=== PATIENT | male | born 1970 | race Caucasian/White ===

== ENCOUNTER 2020-07-05 17:10 | Outpatient (CLI) | payer OTHER ==
[2020-07-05 16:03] LABS: PTT 26.5 sec (22.0-33.0); Prothrombin Time 11.4 sec (9.5-12.1)
[2020-07-05 16:05] LABS: Hemoglobin 15.4 g/dL (13.5-17.5); Mean Corpuscular HGB CONC 33.8 g/dL (32.0-36.0); Mean Corpuscular Hemoglobin 30.6 pg (27.0-33.0); Mean Corpuscular Volume 90.3 fl (81.2-95.1); Platelet Count 145 10x3/uL (150-450); RBC Distribution Width 12.6 % (11.5-14.5); Red Blood Cell (RBC) Count 5.04 10x6/uL (4.32-5.72); White Blood Cell (WBC) Count 8.3 10x3/uL (3.5-10.5)
[2020-07-05 17:12] LABS: Anion Gap 14 mmol/L (10-20); BUN (Urea Nitrogen) 24 mg/dL (8.4-25.7); Calc. Creatinine Clearance 0 mL/min (70-130); Calcium 8.4 mg/dL (7.8-10.44); Carbon Dioxide 21 mmol/L (22-29); Chloride 107 mmol/L (98-107); Glucose 82 mg/dL (70-105); Potassium 4.3 mmol/L (3.5-5.1); Sodium 138 mmol/L (136-145)
== END 2020-07-05 17:11 | disposition home or self-care (01) ==
LOC: LABBT 17:10
PROVIDERS: ATTEND Surgery
DX: Z01.818 Encounter for other preprocedural examination (principal); M50.10 Cervical disc disorder with radiculopathy, unspecified cervical region; M48.02 Spinal stenosis, cervical region; Z20.822 Contact with and (suspected) exposure to COVID-19
CPT/HCPCS: 80048; 85027; 85610; 85730; 86850; 86900; 86901; 87635; 93005; 93010; U0003; U0005

== ENCOUNTER 2020-07-10 06:03 | Day surgery (SDC) | payer OTHER ==
[2020-07-06 01:53] LABS: SARS-CoV-2 PCR by NAA Not Detected (NotDetected)
[2020-07-06 15:02] VITALS: BMI 32.1
[2020-07-10] MEDS ORDERED: Thrombin 5000 UNITS/5 ML VIAL ONE (06:37)
[2020-07-10] MEDS ORDERED: Fentanyl 250 MCG/5 ML VIAL ONE (07:05)
[2020-07-10] MEDS ORDERED: PHENYLEPHRINE-NS 100 MCG/ML 10 ML SYRINGE ONE (07:35)
[2020-07-10] MEDS ORDERED: Dexamethasone 20 MG/5 ML VIAL ONE (07:35)
[2020-07-10] MEDS ORDERED: Ondansetron PF 4 MG/2 ML Vial ONE (07:35)
[2020-07-10] MEDS ORDERED: Rocuronium Bromide 10 MG/ML (10ML VIAL) ONE (07:35)
[2020-07-10] MEDS ORDERED: ePHEDrine Sulfate 50 MG/10 ML VIAL ONE (07:35)
[2020-07-10] MEDS ORDERED: PROPOFOL 200 MG/20 ML VIAL ONE (07:35)
[2020-07-10] MEDS ORDERED: Glycopyrrolate 0.2 MG/ML 5 ML SYRINGE ONE (07:35)
[2020-07-10] MEDS ORDERED: Lidocaine 1% PF 5 ML VIAL ONE (07:35)
[2020-07-10] MEDS ORDERED: Acetaminophen/Codeine 30-300mg Tablet PO PRN (09:57)
[2020-07-10] MEDS ORDERED: Mag-Al 1200 mg/1200 mg/30 ML UDCUP PO PRN (09:57)
[2020-07-10] MEDS ORDERED: Milk Of Magnesia 30 ML UDCUP PO PRN (09:57)
[2020-07-10] MEDS ORDERED: Ondansetron PF 4 MG/2 ML Vial IVP PRN (09:57)
[2020-07-10] MEDS ORDERED: Acetaminophen 325 MG TAB PO PRN (09:57)
[2020-07-10] MEDS ORDERED: traMADol HCl 50 MG TAB PO PRN (09:57)
[2020-07-10] MEDS ORDERED: Morphine 2 MG/ML VIAL SLOW IVP PRN (09:57)
[2020-07-10] MEDS ORDERED: tiZANidine HCl 4 MG TAB PO PRN (09:57)
[2020-07-10] MEDS ORDERED: Non-Formulary Item 1 EACH (Melatonin [Melatonin] 5 MG Capsule) PO PRN (09:59)
[2020-07-10] MEDS ORDERED: Promethazine HCl 25 MG/ML VIAL IM PRN (10:04)
[2020-07-10] MEDS ORDERED: HYDROmorphone 2 MG/ML VIAL SLOW IVP PRN (10:04)
[2020-07-10] MEDS ORDERED: Morphine Sulfate 2 MG/ML SYRINGE SLOW IVP PRN (10:04)
[2020-07-10] MEDS ORDERED: Ondansetron HCl/PF 4 MG/2 ML Vial IVP PRN (10:04)
[2020-07-10] MEDS ORDERED: Promethazine HCl 25 MG/ML VIAL SLOW IVP PRN (10:04)
[2020-07-10] MEDS ORDERED: PACU-Morphine 4MG/ML VIAL SLOW IVP PRN (10:04)
[2020-07-10] MEDS ORDERED: Fentanyl 100 MCG/2 ML VIAL ONE ×2 (10:11→10:58)
[2020-07-10] MEDS ORDERED: Melatonin 3 MG TAB PO PRN (10:32)
[2020-07-10] MEDS ORDERED: HYDROmorphone 0.5 MG/0.5 ML SYRINGE ONE ×2 (11:41→12:53)
[2020-07-10] MEDS: Sodium Chloride 0.9% 1,000 ML IV SCH (15:04)
[2020-07-10] MEDS: CEFAZOLIN 2 GM in Premix Bag 1 BAG IVPB SCH ×2 (16:33→21:55)
[2020-07-10] MEDS: HYDROcodone/Acetaminophen 7.5/325 mg Tablet PO PRN (17:43)
[2020-07-11] MEDS: HYDROcodone/Acetaminophen 7.5/325 mg Tablet PO PRN (01:20)
[2020-07-11] MEDS ORDERED: Levothyroxine Sodium 100 MCG TAB PO SCH (06:00)
[2020-07-11] MEDS: Sodium Chloride 0.9% 1,000 ML IV SCH (06:05)
[2020-07-11] MEDS: CEFAZOLIN 2 GM in Premix Bag 1 BAG IVPB SCH (06:05)
[2020-07-11 07:47] VITALS: BP 158/105; TEMP 97.9
[2020-07-11] MEDS ORDERED: Non-Formulary Item 1 EACH (Multivit-Min/Folic/Vit K/Lycop [Men's Multivitamin Tablet] 1 E PO SCH (09:00)
[2020-07-11] MEDS ORDERED: Non-Formulary Item 1 EACH (Levothyroxine Sodium [Levothyroxine Sodium] 200 MCG Tablet) PO SCH (09:00)
[2020-07-11] MEDS ORDERED: Multivitamin W/ Minerals 1 TAB PO SCH (09:00)
== END 2020-07-11 10:52 | disposition home or self-care (01) ==
LOC: SDC 06:03 → T4-A 09:57 → SDC 07-11 10:52
PROVIDERS: ATTEND Surgery
PROC: 0RT30ZZ Resection of Cervical Vertebral Disc, Open Approach (ICD-10-PCS; principal; 2020-07-10)
PROC: 0RG20A0 Fusion of 2 or more Cervical Vertebral Joints with Interbody Fusion Device, Anterior Approach, Anterior Column, Open Approach (ICD-10-PCS; principal; 2020-07-10)
DX: M54.12 Radiculopathy, cervical region (principal); M48.02 Spinal stenosis, cervical region; I10 Essential (primary) hypertension; E78.5 Hyperlipidemia, unspecified; I25.10 Atherosclerotic heart disease of native coronary artery without angina pectoris; Z95.1 Presence of aortocoronary bypass graft; E03.9 Hypothyroidism, unspecified; E66.9 Obesity, unspecified; Z68.32 Body mass index [BMI] 32.0-32.9, adult; Z87.891 Personal history of nicotine dependence; Z79.82 Long term (current) use of aspirin; Z79.899 Other long term (current) drug therapy; Z98.1 Arthrodesis status; Z98.84 Bariatric surgery status; Z20.822 Contact with and (suspected) exposure to COVID-19
CPT/HCPCS: 36415; 76000; 86850; 86900; 86901; 87635; C1713; C1776; J0690; J1100; J1170; J2405; J2704; J3010; J3490; U0003; U0005

== ENCOUNTER 2020-08-21 10:45 | Outpatient (CLI) | payer OTHER | END 2020-08-21 10:46 | disposition home or self-care (01) | LOC: TBSIIMAG 10:45 | PROVIDERS: ATTEND Physician Assistant | DX: M54.12 Radiculopathy, cervical region (principal); M50.20 Other cervical disc displacement, unspecified cervical region; M48.02 Spinal stenosis, cervical region | CPT/HCPCS: 72040 ==